=== PATIENT | female | born 1940 | race Caucasian/White ===

== ENCOUNTER 2016-10-19 19:01 | Emergency (ER) | payer MEDICARE, OTHER ==
[2016-10-19] MEDS ORDERED: NS 0.9% 1000 ML* 1,000 ML IV ONE (19:12)
[2016-10-19 19:58] LABS: Hematocrit 35 % (35-47); Hemoglobin 11.8 g/dl (12.0-16.0); Mean Corpuscular HGB Conc 34 g/dl (31-36); Mean Corpuscular Hemoglobin 32 pg (27-31); Mean Corpuscular Volume 94 fL (80-97); Mean Platelet Volume 8 um3 (7.4-10.4); Red Blood Count 3.72 10^6/ul (4.0-5.4); Red Cell Distribution Width 14 % (10.5-15); White Blood Count 7.5 10^3/ul (3.5-10.8)
--- NOTE | 2016-10-19 19:58 | RAD ---
HISTORY: Altered mental status, hypoglycemia, dementia COMPARISONS: October 14, 2015 TECHNIQUE: Multiple contiguous axial CT scans were obtained of the head without intravenous contrast. FINDINGS: HEMORRHAGE/INFARCT: There is no hemorrhage or acute infarct. MASSES/SHIFT: There is no mass or shift. EXTRA-AXIAL SPACES: There are no extra-axial fluid collections. SULCI AND VENTRICLES: There is diffuse and proportional enlargement of the sulci and ventricles. CEREBRUM: There is hypoattenuation of the periventricular and subcortical white matter. BRAINSTEM: There are no focal parenchymal abnormalities. CEREBELLUM: There are no focal parenchymal abnormalities. VESSELS: There is calcification of the cavernous segments of the internal carotid arteries bilaterally. PARANASAL SINUSES: The paranasal sinuses are clear. ORBITS: The orbits are unremarkable. BONES AND SOFT TISSUE: No bone or soft tissue abnormalities are noted. OTHER: None IMPRESSION: NO ACUTE INTRACRANIAL PATHOLOGY. DIFFUSE INVOLUTIONAL CHANGE WITH CHRONIC SMALL VESSEL ISCHEMIC CHANGES.
--- NOTE | 2016-10-19 20:00 | RAD ---
HISTORY: Altered mental status COMPARISONS: August 13, 2016 VIEWS: 2: Frontal and lateral views of the chest. FINDINGS: CARDIOMEDIASTINAL SILHOUETTE: The aorta is tortuous. The cardiomediastinal silhouette is otherwise unremarkable. GUEVARA: The guevara are normal. PLEURA: The costophrenic angles are sharp. No pleural abnormalities are noted. LUNG PARENCHYMA: The lungs are clear. ABDOMEN: The upper abdomen is clear. There is no subphrenic gas. BONES AND SOFT TISSUES: The patient is status post median sternotomy. OTHER: None. IMPRESSION: NO ACTIVE CARDIOPULMONARY DISEASE.
[2016-10-19 20:16] LABS: BUN/Creatinine Ratio 29.5 (8-20); Calcium 9.7 mg/dL (8.6-10.3); EGFR African American 55.3 (>60); Potassium 3.6 mmol/L (3.5-5.0)
--- NOTE | 2016-10-19 21:05 | ED ---
Latonia Samuels Claudia, scribed for Lopez Waterman MD on 10/19/16 at 1917 . Complex/Multi-Sys Presentation - HPI Summary HPI Summary: 76 year old women presents to the ED from [facility]. Pt was given her insulin this evening before giving her anything to eat and therefore her glucose levels were measured at 34 and pt became unresponsive. When EMS arrived pt was being given orange juice. After being given dextrose pt blood glucose was 179 and became responsive again. Upon arriving to ED pt has returned to herself. Pt has only complaint of tiredness upon arrival to ED. PMHx : DM Level 5 caveat dementia - History Of Current Complaint Time Seen by Provider: 10/19/16 19:08 Hx Obtained From: Patient, EMS, Medical Records Hx From Patient Unobtainable Due To: Dementia Onset/Duration: Sudden Onset, Resolved Timing: Constant Associated Signs And Symptoms: Positive: Other - tired - Allergies/Home Medications Allergies/Adverse Reactions: Allergies Allergy/AdvReac Type Severity Reaction Status Date / Time Aspirin Allergy Severe Nausea And Verified 07/09/15 11:19 [From Darvon Compound] Vomiting Caffeine Allergy Severe Nausea And Verified 07/09/15 11:19 [From Darvon Compound] Vomiting Propoxyphene Allergy Severe Nausea And Verified 07/09/15 11:19 [From Darvon Compound] Vomiting Penicillins Allergy Intermediate Hives Verified 07/09/15 11:19 PMH/Surg Hx/FS Hx/Imm Hx Previously Healthy: Yes Endocrine/Hematology History: Reports: Hx Diabetes Denies: Hx Thyroid Disease Cardiovascular History: Reports: Hx Hypertension Denies: Hx Pacemaker/ICD Respiratory History: Denies: Hx Asthma, Hx Chronic Obstructive Pulmonary Disease (COPD) GI History: Denies: Hx Ulcer Sensory History: Denies: Hx Hearing Aid Neurological History: Reports: Hx Dementia Psychiatric History: Denies: Hx Panic Disorder - Surgical History Surgery Procedure, Year, and Place: CVA, CARDIAC STENT 2006. BILATERAL WRIST Infectious Disease History: Reports: Hx Shingles Denies: Hx Clostridium Difficile, Hx Hepatitis, Hx Human Immunodeficiency Virus (HIV), Hx of Known/Suspected MRSA, Hx Tuberculosis, Hx Known/Suspected VRE , Hx Known/Suspected VRSA, History Other Infectious Disease - Family History Family History: UNOBTAINABLE - DEMENTIA - Social History Lives: At [facility] Alcohol Use: None Hx Substance Use: No Substance Use Type: Reports: None Hx Tobacco Use: No Smoking Status (MU): Never Smoked Tobacco Review of Systems - ROS Summary Review of Systems Summary: Level 5 caveat - dementia Positive: Other - tired Eyes: Negative ENT: Negative Cardiovascular: Negative Negative: Chest Pain Respiratory: Negative Gastrointestinal: Negative Genitourinary: Negative Musculoskeletal: Negative Skin: Negative Neurological: Negative Psychological: Normal All Other Systems Reviewed And Are Negative: Yes Physical Exam Triage Information Reviewed: Yes Vital Signs On Initial Exam: Initial Vitals Temp Pulse Resp BP Pulse Ox 96.6 F 122 16 98/77 99 10/19/16 19:08 10/19/16 19:08 10/19/16 19:08 10/19/16 19:08 10/19/16 19:08 Vital Signs Reviewed: Yes Completion Of Physical Exam Limited Due To: Dementia - Level 5 caveat- dementia Appearance: Positive: Well-Appearing, No Pain Distress Skin: Positive: Warm, Skin Color Reflects Adequate Perfusion, Dry Head/Face: Positive: Normal Head/Face Inspection Eyes: Positive: EOMI, ALMA Respiratory/Lung Sounds: Positive: Clear to Auscultation, Breath Sounds Present Cardiovascular: Positive: RRR, Tachycardia. Negative: Leg Edema Left, Leg Edema Right Abdomen Description: Positive: Nontender, Soft Musculoskeletal: Positive: Strength/ROM Intact Neurological: Positive: Normal Psychiatric: Positive: Normal, Affect/Mood Appropriate Diagnostics - Vital Signs Vital Signs Temp Pulse Resp BP Pulse Ox 10/19/16 19:08 96.6 F 122 16 98/77 99 - Laboratory Result Diagrams: 10/19/16 19:45 10/19/16 19:45 Lab Statement: Any lab studies that have been ordered have been reviewed, and results considered in the medical decision making process. - Radiology CXR Xray Interpretation: No Acute Changes - NO ACTIVE CARDIOPULMONARY DISEASE Radiology Interpretation Completed By: Radiologist - CT BRAIN CT CT Interpretation: No Acute Changes - NO ACUTE INTRACRANIAL PATHOLOGY. DIFFUSE INVOLUTIONAL CHNAGE WITH CHRONIC SMALL VESSEL ISCHEMIC CHANGES CT Interpretation Completed By: Radiologist Complex Multi-Symp Course/Dx - Diagnoses Differential Diagnoses/HQI/PQRI: Aspiration, Metabolic Abnormality, Urinary Tract Infection, Other - Primary concern for medication induced hypoglycemia without preceding food or subsequent food intake. Nontoxic appearing and now at baseline. CT for occult ischemic cause. Provider Diagnoses: Hypoglycemia Discharge - Discharge Plan Condition: Improved Disposition: HOME Patient Education Materials: Diabetic Hypoglycemia (ED) Referrals: Damien Barnard MD [Primary Care Provider] - 3 Days The documentation as recorded by the Latonia vaughan Claudia accurately reflects the service I personally performed and the decisions made by me, Lopez Waterman MD.
[2016-10-19 21:08] VITALS: BP 159/71
== END 2016-10-19 21:04 | disposition home or self-care (01) ==
LOC: ED 19:01
DX: E11.649 Type 2 diabetes mellitus with hypoglycemia without coma (principal); F03.90 Unspecified dementia, unspecified severity, without behavioral disturbance, psychotic disturbance, mood disturbance, and anxiety
CPT/HCPCS: 36415; 70450; 71020; 80048; 85027; 99283